=== PATIENT | male | born 1970 | race Caucasian/White ===

== ENCOUNTER → 2017-01-14 07:50 | Outpatient (CLI) | payer BC | END | disposition home or self-care (01) | LOC: D.MRI 07:50 | DX: M54.6 Pain in thoracic spine (principal) ==

== ENCOUNTER → 2017-03-14 09:30 | Outpatient (CLI) | payer BC | END | disposition home or self-care (01) | LOC: D.CT 09:30 | DX: R91.1 Solitary pulmonary nodule (principal) ==

== ENCOUNTER → 2018-03-02 14:34 | Outpatient (CLI) | payer BC ==
[2017-08-12 13:47] VITALS: BMI 32.5
[~2018-03-02 14:34] MED LIST: LEVOXYL50 MCG PO; LYRICA50 MG PO; PAXIL10 MG PO; TENORMIN50 MG PO
== END | disposition home or self-care (01) ==
LOC: D.CT 14:34
DX: R91.1 Solitary pulmonary nodule (principal)

== ENCOUNTER → 2018-08-13 09:19 | Outpatient (CLI) | payer BC ==
[2017-08-12 13:47] VITALS: BMI 32.5
== END | disposition home or self-care (01) ==
LOC: D.MRI 09:19
DX: M54.6 Pain in thoracic spine (principal)

== ENCOUNTER 2019-07-28 14:14 | Emergency (ER) | payer BC ==
[~2019-07-28] VITALS: Ht 185.4 cm; Wt 106.4 kg
[2019-07-28 14:16] VITALS: Ht 185.4 cm; Wt 106.4 kg
[2019-07-28 14:40] LABS: BASOPHILS 0.2 % (0-2); EOSINOPHILS 0.1 % (0-7); HEMATOCRIT 45.2 % (42.0-54.0); HEMOGLOBIN 16.3 g/dL (13.5-17.5); IMMATURE GRANULOCYTES 0.2 % (0-5); LYMPHOCYTES 15.2 % (15-50); MCH 31.3 pg (26.0-34.0); MCHC 36.1 g/dL (31.0-37.0); MCV 86.8 fL (80.0-100.0); MEAN PLATELET VOLUME 10.9 fL (7.4-10.4); MONOCYTES 5.9 % (2-11); NEUTROPHILS 78.4 % (40-80); PLATELET COUNT 224 10x3/uL (130-400); RBC 5.21 10x6/uL (4.20-6.10); RDW 13.4 % (11.5-14.5); WBC 9.7 10x3/uL (4.8-10.8)
[2019-07-28 14:59] LABS: ALBUMIN 4.2 g/dL (3.4-5.0); ALKALINE PHOSPHATASE 46 U/L (46-116); ALT (SGPT) 21 U/L (10-68); BILIRUBIN - TOTAL 0.67 mg/dL (0.2-1.3); CALC OSMOLALITY 280 mosm/kg (275-300); CALCIUM 9.1 mg/dL (8.5-10.1); CARBON DIOXIDE 30.5 mmol/L (21.0-32.0); CHLORIDE - SERUM 102 mmol/L (98-107); CREATININE - SERUM 0.9 mg/dL (0.6-1.3); GLUCOSE 100 mg/dL (74-106); POTASSIUM - SERUM 3.8 mmol/L (3.5-5.1); PROTEIN - SERUM 8.4 g/dL (6.4-8.2); SODIUM 140 mmol/L (136-145); UREA NITROGEN 19 mg/dL (7-18); eGFR NON AFRICAN AMERICAN > 90 mL/min (90-120)
[2019-07-28 15:10] LABS: CKMB 1.5 U/L (0.0-3.6); CREATINE KINASE 139 UL (21-232); THYROID STIMULATING HORMONE 1.71 uIU/mL (0.36-3.74)
[2019-07-28 15:16] LABS: TROPONIN-I < 0.017 ng/mL (0.000-0.060)
[2019-07-28] MEDS ORDERED: AUGMENTIN 875-11 TAB PO (16:03)
[2019-07-28 16:32] VITALS: BP 146/75
== END 2019-07-28 16:32 | disposition home or self-care (01) ==
LOC: D.ER 14:14
PROVIDERS: Family Medicine
DX: R55 Syncope and collapse (principal); J18.9 Pneumonia, unspecified organism